=== PATIENT | female | born 1940 | race Caucasian/White ===

== ENCOUNTER 2024-08-17 13:45 | Emergency (ER) | payer OTHER ==
[2024-08-17 14:13] VITALS: BP 120/65; PULSE 83; RESP 15; TEMP 99.1; BMI 24.7
[2024-08-17] MEDS ORDERED: DIPHTH,PERTUSS(ACELL),TET 0.5 ML DISP.SYRIN IM ONE (16:30)
[2024-08-17] MEDS: DIPHTH,PERTUSS(ACELL),TET 0.5 ML DISP.SYRIN IM ONE (16:34)
[2024-08-17] MEDS ORDERED: DALBAVANCIN HCL 500 MG VIAL (RESTRICTED TO ID ONLY) IVPB ONE (16:34)
[2024-08-17] MEDS: DALBAVANCIN HCL 1,500 MG in DEXTROSE 5%-WATER - 500 ML IVPB ONE (16:58)
== END 2024-08-17 21:09 ==
LOC: JER 13:45
PROC: 3E03329 Introduction of Other Anti-infective into Peripheral Vein, Percutaneous Approach (ICD-10-PCS; principal; 2024-08-17)
PROC: 3E0234Z Introduction of Serum, Toxoid and Vaccine into Muscle, Percutaneous Approach (ICD-10-PCS; 2024-08-17)
DX: S61.451A Open bite of right hand, initial encounter (principal); Z23 Encounter for immunization; X83.8XXA Intentional self-harm by other specified means, initial encounter
CPT/HCPCS: 73130-TC-RT-FY; 90471; 90715; 96365; 99284-25; J0875